=== PATIENT | male | born 1970 | race Caucasian/White ===

== ENCOUNTER 2016-09-18 16:20 | Emergency (ER) | payer SELFPAY | END 2016-09-18 17:00 | disposition home or self-care (01) | LOC: ER 16:20 | DX: H10.11 Acute atopic conjunctivitis, right eye (principal); F17.210 Nicotine dependence, cigarettes, uncomplicated; Z88.8 Allergy status to other drugs, medicaments and biological substances; Z23 Encounter for immunization | CPT/HCPCS: 90471 ==

== ENCOUNTER 2016-09-23 20:51 | Emergency (ER) | payer SELFPAY | END 2016-09-23 21:45 | disposition home or self-care (01) | LOC: ER 20:51 | DX: H10.33 Unspecified acute conjunctivitis, bilateral (principal); H01.005 Unspecified blepharitis left lower eyelid; H01.004 Unspecified blepharitis left upper eyelid; F17.210 Nicotine dependence, cigarettes, uncomplicated; Z88.5 Allergy status to narcotic agent ==